=== PATIENT | male | born 1990 | race Caucasian/White ===

== ENCOUNTER 2024-05-01 14:12 | Outpatient (AMB) | payer OTHER, SELFPAY ==
--- NOTE | 2024-05-01 14:32 | MHC.OFFWIV ---
Intake Vital Signs 05/01/24 14:35 Height 6 ft Weight 153 lb BMI 20.7 BP 116/74 Blood Pressure Location Lt brachial Position Sitting Pulse 100 Pulse Source Pulse Oximeter Temp 97.9 F Temp Source Oral Pulse Oximetry (%) 99 Oxygen Delivery Method Room Air Intake Visit Reasons: possibly hernia left side pain, rt arm pain Intake Note: pt c/o possible hernia LT lower abdomen and RT arm pain Patient Tobacco Use Status: Never used Tobacco Allergies No Known Allergies Allergy (Verified 05/01/24 14:48) Do you need a note to return to daycare/school/sports/work: No HPI possibly hernia left side pain, rt arm pain HPI Details This note is constructed using voice recognition software. While every effort has been made to ensure accuracy, oil well cable tool driller errors may have been included. The patient is a 33 year old male who presents to the clinic today with multiple complaints. He reports that he noted a ?hernia? in his lower rib region on the left, he has been more aware of it in the last few months, but it does not hurt. He has no change in bowel pattern. He has not have this examined before. He also reports that there is a burning sensation and pain in his right biceps region. 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 He denies numbness, tingling, difficulty with strength. He has not had a specific injury to the area. He has not tried anything to resolve the pain. Nothing seems to make worse. Of note he was seen in the emergency room within the past several months, and he was ?forced? to have a primary care provider, which 1 was arranged for him, and he is meeting his new PCP in June. [facility] Social History Patient Tobacco Use Status: Never used Tobacco Review of Systems Const All systems reviewed & are unremarkable except as noted in HPI and below Physical Exam Vital Signs: Last Vital Signs Temp 97.9 F 05/01/24 14:35 Pulse 100 05/01/24 14:35 BP 116/74 05/01/24 14:35 Pulse Ox 99 05/01/24 14:35 Oxygen Delivery Method Room Air 05/01/24 14:35 BMI result Body Mass Index 20.7 Const General: cooperative, healthy appearing, comfortable, no acute distress and alert Orientation/consciousness: patient oriented x3 Limitations: no limitations HEENT Head: Yes normal to inspection and Yes normocephalic Ears: hearing grossly normal bilaterally General nose exam: Normal external nose present Face and sinus: Yes normal facial exam and Yes sinuses nontender Mouth: Normal oral and palatal mucosa present and tongue normal Teeth and gingiva: dentition normal Throat: Yes posterior oropharynx normal Eyes General: appearance normal, both eyes and all related structures Neck Neck: Yes normal visual inspection, Yes full ROM and Yes no lymphadenopathy Chest Other: Patient's reported area of concern corresponds with palpable rib on left, without deformity. Resp Effort & Inspection: normal respiratory effort and able to speak in complete sentences Auscultation: clear to auscultation bilaterally Cardio Jugular venous distension: no JVD Palpation: normal PMI Rate: regular rate Heart sounds: S1 normal heart sound present, S2 normal heart sound present, no click, no gallops, no murmurs and no rubs GI Inspection: Yes normal to inspection Palpation (GI): Soft to palpation and nontender Percussion: Yes normal to percussion Auscultation: normal bowel sounds Skin General skin exam: no rashes or lesions noted, elasticity normal and turgor normal Neuro General: patient oriented x3 Extrem Other: Upper extremity strength 5/5, full range of motion. No areas tender to palpation. Distal neurovascular exam intact. General: Yes normal to inspection, Yes full ROM, Yes capillary refill normal and Yes normal exam except as noted Psych Appearance: grossly normal Mental Status: mental status grossly normal Speech and movement: Normal speech and movement present Affect: normal affect Assessment & Plan Assessment & Plan (1) Arm pain, musculoskeletal: Code(s): M79.603 - Pain in arm, unspecified Qualifiers: Laterality: right Qualified Code(s): M79.601 - Pain in right arm Plan: Supportive measures encouraged and reviewed including NSAIDs, stretching, ice, heat. Given that patient works lifting heavy boxes, it is entirely likely that he could have strained his muscle. Offered letter for home from work for today and tomorrow for resolution. Advised patient to follow up with PCP with worsening symptoms. (2) Worried well: Code(s): Z71.1 - Person with feared health complaint in whom no diagnosis is made Plan: Patient was worried about hernia over his rib area. Discussed at length how this is not physically an area where a hernia would occur. What he is palpating is actually his ribs, and what is being palpated his actually normal. We discussed follow with the primary care provider to review all of his as he may likely benefit from someone who can direct him in identifying normal from abnormal on a routine basis. Plan See above for full details and plan. Coding Level of Care Code New Pt Level 3 (08500) Diagnoses Musculoskeletal pain of right upper extremity M79.601 Laterality: right Worried well Z71.1
[2024-05-01 14:35] VITALS: BP 116/74; PULSE 100; TEMP 36.6; O2SAT 99; BMI 20.7
== END 2024-05-01 15:16 | disposition home or self-care (01) ==
PROVIDERS: Visit Provider Registered Nurse
DX: M79.601 Pain in right arm (principal); Z71.1 Person with feared health complaint in whom no diagnosis is made
CPT/HCPCS: 99203